=== PATIENT | female | born 1950 | race Caucasian/White ===

== ENCOUNTER 2022-01-19 08:39 | Day surgery (SDC) | payer MEDICARE ==
[2022-01-19] MEDS ORDERED: Depo-Medrol 40 MG/ML IM ONE (08:40)
[2022-01-19] MEDS ORDERED: Sodium Chloride 0.9(Preservative Free) 10 ML IJ ONE (08:40)
[2022-01-19] MEDS ORDERED: XYLOCAINE-MPF 1% 5ML SDV IJ ONE (08:40)
[2022-01-19] MEDS ORDERED: Lactated Ringers 1,000 ML IV ONE (10:29)
[2022-01-19] MEDS ORDERED: DIPRIVAN 200 MG/20 ML IV ONE (10:37)
--- NOTE | 2022-01-19 11:28 | XRAY ---
Indication: Lumbar RODNEY. Intraoperative fluoroscopy provided for 20 seconds. 2 digital spot image submitted for interpretation demonstrates midline posterior needle tip projecting just posterior to the last lumbar segment. Small amount of contrast injected for needle tip placement.. Correlate with intraoperative findings/report.
--- NOTE | 2022-01-19 11:31 | XRAY ---
20 seconds fluoroscopy time in surgery for lumbar RODNEY.
== END 2022-01-19 11:00 | disposition home or self-care (01) ==
LOC: SDC-PAIN 08:39
PROVIDERS: ATTEND Psychiatry & Neurology Pain Medicine
DX: M54.16 Radiculopathy, lumbar region (principal); E11.9 Type 2 diabetes mellitus without complications; Z79.899 Other long term (current) drug therapy
CPT/HCPCS: 62323; 72100; 77003; 82947; J1030; J2704; Q9966